=== PATIENT | female | born 1985 | race Caucasian/White ===

== ENCOUNTER → 2022-06-01 | Outpatient (CLI) | payer OTHER, SELFPAY ==
--- NOTE | 2022-06-01 09:33 | EKG12_ITS ---
Test Reason : ROUTINE Blood Pressure : / mmHG Vent. Rate : 073 BPM Atrial Rate : 073 BPM P-R Int : 152 ms QRS Dur : 082 ms QT Int : 380 ms P-R-T Axes : 044 039 011 degrees QTc Int : 418 ms Sinus rhythm with marked sinus arrhythmia Low voltage QRS Borderline ECG Confirmed by BABITA LARSON, RADHA ([id number]), rewrite editor GABO SALINAS ([id number]) on 06/02/2022 2:07:15 PM Referred By: Rhiannon Moore Confirmed By:WILFRIDO JC MD
== END | disposition home or self-care (01) ==
LOC: PSN 09:32
PROVIDERS: PCP Internal Medicine; Referring Provider Internal Medicine; Visit Provider Internal Medicine
DX: R00.2 Palpitations (principal)
CPT/HCPCS: 93005; 93225; 93226

== ENCOUNTER → 2022-07-06 | Outpatient (CLI) | payer OTHER, SELFPAY ==
--- NOTE | 2022-07-06 12:20 | ECHOD_ITS ---
Reason For Study: Arrhythmia Procedure This was a 2D Doppler, Color Flow transthoracic echocardiogram. The exam was of adequate technical quality. Exam performed in department. Left Ventricle Normal LV size. Left ventricular systolic function is normal. The estimated ejection fraction is 65 %. No evidence for diastolic dysfunction. No regional wall motion abnormalities noted. Right Ventricle Normal RV size. Normal systolic function. Atria Normal left atrium. Normal right atrium. No doppler evidence for ASD. Mitral Valve There is no mitral annular calcification. Normal mitral valve. Trivial mitral valve insufficiency. Tricuspid Valve Normal tricuspid valve. Trivial tricuspid valve insufficiency. Unable to estimate RV systolic pressure due to insufficient tricuspid regurgitant envelope. Aortic Valve Trisinus/trileaflet aortic valve. Normal aortic valve. Pulmonic Valve The pulmonic valve is not well visualized. Trivial pulmonic valve insufficiency. Great Vessels Normal sized aortic root. Pericardium/Pleural No pericardial effusion. MMode/2D Measurements & Calculations LVIDd: 4.6 cm IVSd: 0.93 cm Ao root diam: 3.1 cm LVIDs: 2.9 cm LVPWd: 1.0 cm LA dimension: 3.5 cm FS: 36.2 % LAV(MOD-bp): 28.6 ml LA A4 area: 13.8 cm2 RA A4 area: 13.3 cm2 LAV(MOD-bp) Indexed: 14.4 ml/m2 LAV(MOD-sp2): 22.6 ml LAV(MOD-sp4): 27.9 ml Time Measurements MV dec time: 0.19 sec Doppler Measurements & Calculations MV E max elio: 99.6 cm/sec Lat Peak E' Elio: 16.2 cm/sec Med Peak E' Elio: 14.9 cm/sec MV A max elio: 56.1 cm/sec E/E' lat: 6.2 E/E' med: 6.7 MV E/A: 1.8 MV V2 max: 101.8 cm/sec MV P1/2t max elio: 101.8 cm/sec Ao V2 max: 131.9 cm/sec MV max P.1 mmHg MV P1/2t: 51.2 msec Ao max P.0 mmHg MV V2 mean: 53.5 cm/sec MV dec slope: 582.6 cm/sec2 MV mean P.4 mmHg MVA(P1/2t): 4.3 cm2 MV V2 VTI: 19.3 cm LV V1 max: 78.6 cm/sec PA V2 max: 97.4 cm/sec LV V1 max P.5 mmHg ECHO/Echo Complete Interpretation Summary Left ventricular systolic function is normal. The estimated ejection fraction is 65 %. Trivial mitral valve insufficiency. Trivial tricuspid valve insufficiency. Trivial pulmonic valve insufficiency. Unable to estimate RV systolic pressure due to insufficient tricuspid regurgita nt envelope. No evidence for diastolic dysfunction. Ordering Physician: Geoff Akbar Referring Physician: Elke Moore Performed By: Gato Mason RCS
--- NOTE | 2022-07-06 14:58 | STRESSREP ---
Stress Test Report Date: 07-06-2022 Procedure: Exercise tolerance test Indications: Shortness of breath/dyspnea; conduction system abnormality Consent: Per the patient Procedure: The patient exercised on a Tom protocol for 6 minutes completing stage II achieving a peak heart rate of 190 bpm (104% predicted maximal heart rate) with a resting blood pressure of 122/82 mmHg and a peak blood pressure 140/88 mmHg and a peak MET capacity of approximately 7 MET's. The baseline ECG demonstrated normal sinus rhythm. The peak exercise ECG demonstrated somatic/motion artifact with no obvious ECG changes. There were no cardiac dysrhythmias pretest, during exercise, or recovery. The functional capacity was considered average. The patient had no complaint of chest discomfort during exercise or recovery. The examination was discontinued secondary to dyspnea. Impression: 1. Technically adequate (percent predicted maximal heart rate greater than 85%) exercise tolerance test 2. Peak exercise ECG with somatic/motion artifact with no obvious ECG changes 3. There were no cardiac dysrhythmias during exercise or recovery This note was generated with [employer] software. It may contain incorrect words, spelling, and punctuation that were not noted in checking the note before signing.
== END | disposition home or self-care (01) ==
LOC: CVS 12:19
PROVIDERS: PCP Internal Medicine; Referring Provider Internal Medicine Cardiovascular Disease; Visit Provider Internal Medicine Cardiovascular Disease
DX: R06.02 Shortness of breath (principal); I44.1 Atrioventricular block, second degree; R00.2 Palpitations
CPT/HCPCS: 93017; 93306

== ENCOUNTER → 2023-08-22 | Outpatient (CLI) | payer OTHER, SELFPAY ==
--- NOTE | 2023-08-22 13:45 | BI_ITS ---
MAMMOGRAPHY - BILATERAL SCREENING REASON FOR EXAM: Female, 38 years old. Routine annual screening examination. PERTINENT HISTORY: Non-contributory. TECHNIQUE: Digital bilateral breast misael (3D mammographic acquisition) in the CC and MLO projections. 2-D mediolateral oblique (MLO) and craniocaudad (CC) views of both breasts were obtained. CAD: Full Field Digital Mammography with Computer Added Detection was performed. COMPARISON: None. Baseline examination. FINDINGS: Breast Composition: There are scattered areas of fibroglandular density. There are no dominant masses or suspicious calcifications. No other significant abnormalities are identified. BI/SCRN MAMM (CAD)W/MISAEL BILAT IMPRESSION: Negative screening mammogram. Yearly followup mammogram recommended. (A) ASSESSMENT CATEGORY: BIRADS Category 1: Negative. A letter regarding these results will be sent to the patient by the facility within 30 days. Approximately 10% of breast cancers are not detected by mammography. A normal mammogram should not delay biopsy of a clinically suspicious abnormality. [id number] Electronically Signed: Chato Winston MD at 15:35 EST ,
== END | disposition home or self-care (01) ==
LOC: OPBI 13:43
PROVIDERS: PCP Internal Medicine; Referring Provider Internal Medicine; Visit Provider Internal Medicine
DX: Z12.31 Encounter for screening mammogram for malignant neoplasm of breast (principal)
CPT/HCPCS: 77063; 77067

== ENCOUNTER → 2023-10-23 | Outpatient (CLI) | payer OTHER, SELFPAY ==
--- NOTE | 2023-10-23 14:15 | RAD_ITS ---
STUDY: X-RAY - LUMBAR SPINE REASON FOR EXAM: Female, 38 years old. Back pain TECHNIQUE: 5 view(s) of the lumbar spine were obtained. COMPARISON: None FINDINGS: Normal lumbar lordosis. There is mild dextroscoliosis or splinting secondary to muscle spasm. There is a normal alignment of the vertebrae. No evidence for acute fracture or subluxation. No lytic or sclerotic bony lesions. There is narrowing of L4-5 disc space and multilevel endplate spurring. The soft tissue structures are unremarkable. RAD/L/S Spine Min 4 Views IMPRESSION: Mild scoliosis and degenerative change. No acute fracture or other significant bony pathology. Electronically Signed: Milo Marin MD at 17:02 EST ,
--- OUTSIDE RECORDS SUMMARY | 2023-10-23 14:31 | XMS RPT_ITS | CCD ---
Author Name Unknown Address [address] [place] [address] Organization [facility] Results Test Name Value Interpretation Reference Range Facil ity Summary Purpose Family History No Family History Records Found Advance Directives No Advanced Directives Records Found Additional Source Comments INFORMATION SOURCE (unrecogn ized section and content) FOR RECORDS PERTAINING TO PATIENTS WHO ARE OR HAVE BEEN ENROLLED IN A CHEMICAL DEPENDENCY/SUBSTANCEABUSE PROGRAM, SOME INFORMATION MAY BE OMITTED. This clinical summary was aggregated from multiple sources. Caution should be exercised in using it in the provision of clinical care. This summary normalizes information from multiple sources, and as a consequence, information in this document may materially change the coding, format and clinical context of patient data. In addition, data may be omitted in some cases. CLINICAL DECISIONS SHOULD BE BASED ON THE PRIMARY CLINICAL RECORDS. [employer] provides no warranty or guarantee of the accuracy or completeness of information in this document.
== END | disposition home or self-care (01) ==
LOC: RAD 14:06
PROVIDERS: PCP Internal Medicine; Referring Provider Chiropractor; Visit Provider Chiropractor
DX: M99.01 Segmental and somatic dysfunction of cervical region (principal); M99.02 Segmental and somatic dysfunction of thoracic region; M99.03 Segmental and somatic dysfunction of lumbar region; M99.05 Segmental and somatic dysfunction of pelvic region; M54.9 Dorsalgia, unspecified
CPT/HCPCS: 72110

== ENCOUNTER → 2025-08-26 | Outpatient (CLI) | payer OTHER, SELFPAY ==
--- OUTSIDE RECORDS SUMMARY | 2025-08-26 08:28 | XMS RPT_ITS | CCD ---
Author Organization [facility] Care Team Providers Care Sports Medicine Specialist Name Role Phone Dr. Rhiannon Moore Attending Provider [phone] Dr. Rhiannon Moore Primary Care Provider Dr. Rhiannon Moore Referring Provider [phone] Dr. Olivier Cho Attending Provider [phone] Dr. Geoff Akbar Attending Provider [phone] Dr. Rhiannon Moore Primary Care Provider Dr. Rhiannon Moore Attending Provider [phone] Dr. Rhiannon Moore Referring Provider [phone] Dr. Camila Gutierrez Attending Provider 1330- Assessment, Health Risk Referring Unavaila ble Assessment, Health Risk Attending Unavaila ble Rhiannon Moore Primary Care Unavailable Rhiannon Moore Primary Care Unavailable Rhiannon Moore Referring Unavailable Rhiannon Moore Attending Unavailable Allergies Allergy Classification Reported Allergen(s) Allergy Type Date of Onset Reaction(s) Facility (3 sources) Adhesive agent; Translations: [adhesive] Allergy to substance 06-15-2022 [facility] Medications Current Medications Medication Drug Class(es) Dates Sig (Normalized) Sig (Original) [place] (Nk) (2 sources) Start: 06-15-2022 [place] (Nk) A ctive June 14, 2022 11:00pm Start: 06-15-2022 [place] (Nk) A ctive June 15, 2022 12:00am Completed/Discontinued Medications Medication Drug Class(es) Dates Sig (Normalized) Sig (Original) azithromycin 250 mg oral tablet (2 sources) Macrolide Antimicrobial Start: 10-19-2021 End: 05-22-2022 Azithromycin Discontinued 250 MG PO daily October 19, 2021 12:00am May 22, 2022 9:00am 2 tablets today, then 1 tablet daily on days 2 through 5 Multivitamin preparation (2 sources) Start: 09-11-2021 End: 05-22-2022 take 1 tablet by mouth once daily Multivitamin Discontinued 1 TABLET PO DAILY September 11, 2021 12:00am May 22, 2022 8:59am Start: 09-11-2021 End: 05-22-2022 take 1 tablet by mouth once daily Multivitamin Discontinued 1 TABLET PO DAILY September 11, 2021 1:00am May 22, 2022 9:59am Problems Problem Classification Problem Date Documented Date Episodic/Chronic Acute bronchitis (2 sources) Acute bronchitis; Translations: [Acute bronchitis, unspecified] 07-19-2023 Episodic Administrative/social admission (1 source) Persons encountering health services in other specified circumstances; Translations: [Other reasons for seeking consultation] Episodic Cardiac dysrhythmias (5 sources) Palpitations; Translations: [Palpitations] Episodic Conduction disorders (3 sources) Mobitz type I incomplete atrioventricular block; Translations: [Atrioventricular block, second degree] Chronic Immunizations and screening for infectious disease (2 sources) Patient encounter status; Translations: [Encounter for screening for COVID-19] 07-19-2023 Episodic Malaise and fatigue (1 source) Other fatigue; Translations: [Other fatigue] Onset: 07-28-2025 Episodic Other bone disease and musculoskeletal deformities (4 sources) Segmental and somatic dysfunction; Translations: [Segmental and somatic dysfunction of cervical region] 10-11-2023 Episodic Other bone disease and musculoskeletal deformities (1 source) Segmental and somatic dysfunction of cervical region; Translations: [Nonallopathic lesions, cervical region] 10-11-2023 Episodic Other bone disease and musculoskeletal deformities (1 source) Segmental and somatic dysfunction of lumbar region; Translations: [Nonallopathic lesions, lumbar region] 10-11-2023 Episodic Other bone disease and musculoskeletal deformities (1 source) Segmental and somatic dysfunction of pelvic region; Translations: [Nonallopathic lesions, pelvic region] 10-11-2023 Episodic Other bone disease and musculoskeletal deformities (1 source) Segmental and somatic dysfunction of thoracic region; Translations: [Nonallopathic lesions, thoracic region] 10-11-2023 Episodic Other ear and sense organ disorders (1 source) Impacted cerumen, bilateral; Translations: [Impacted cerumen] 07-19-2023 Episodic Other lower respiratory disease (2 sources) Cough; Translations: [Cough] 05-18-2022 Episodic Other lower respiratory disease (2 sources) Dyspnea; Translations: [Dyspnea, unspecified] 06-15-2022 Episodic Other lower respiratory disease (1 source) Dyspnea, unspecified; Translations: [Other respiratory abnormalities] Episodic Other screening for suspected conditions (not mental disorders or infectious disease) (5 sources) Encounter for screening for cardiovascular disorders; Translations: [Screening for other and unspecified cardiovascular conditions] Episodic Other upper respiratory infections (4 sources) Acute pharyngitis; Translations: [Acute pharyngitis, unspecified] 07-19-2023 Episodic Spondylosis; intervertebral disc disorders; other back problems (6 sources) Low back pain; Translations: [Intermittent low back pain] Episodic Results Test Name Value Interpretation Reference Range Facility Internal Medicine Office Vis ito 07-27-2025 Internal Medicine Office Visit [facility] Internal Medicine [facility] [place] [address] OFFICE VISIT Date of Service: 07/28/25 MR#: [id number] Acct: [id number] Name: CHRISTINA SÁNCHEZ Rep #: [id number] : 1985 Provider: Dr. Rhiannon lundberg MD Age/Sex: 40/F [place] [facility] [place] [facility] [place]: Signed Intake Vital Signs 07/28/24 12:51 07/28/25 10:51 Height 5 ft 3 in 5 ft 3 in Weight: 235 lb BMI 41.6 BP 122/78 H Blood Pressure Location Rt brachial Position Sitting Respiration 16 Pulse 89 Pulse Source Monitor Temp 96.1 F L Temp Source Temporal Pulse Oximetry (%) 99 Oxygen Delivery Method room air Intake Visit Reasons: YEARLY Chief Complaint: Yearly Global Implementation Manager Required: No Accompanied by: Self Is patient in pain?: No Allergies adhesive Allergy (Intermediate, Verified 07/28/25 10:45) Rash Medications ???Medication ???Instructions ???Recorded ???Confirmed ???Type pediatric multivitamin no.209 tab PO 07/28/24 07/28/25 History (Children's Multivitamin Gummy chewable tablet) Nurse's Note: check vitamin d level? right foot heel pain PFSH Medical History Migraines History of cardiac murmur Surgical History History of wisdom tooth extraction Family History Grandmother Anxiety Depression Alzheimer disease CHF (congestive heart failure) Mitral valve prolapse Father Diabetes Heart disease High cholesterol Aunt Diabetes Mitral valve prolapse Sister Diabetes Mother Heart disease High cholesterol Mitral valve prolapse Gaines esophagus Grandfather CVA (cerebral vascular accident) Kidney disease Myocardial infarction Other Hypertension Social History (Updated 07/28/25 @ 11:[address] Rhiannon Moore MD) household members: family current occupational status: employed current occupation: [employer] in [employer] Smoking Status: Never smoker Electronic Cigarette Use: not used alcohol intake: current alcohol intake frequency: holidays/special occasions only substance use type: does not use caffeine: Yes Type: carbonated beverages Number of servings: 3 and tea Number of servings: 1 what type of physical activity do you participate in: none do you feel safe at home: Yes Questionnaire PQH-9 BMS Over the last 2 weeks, how often have you been bothered by any of the following problems? 1. Little interest or pleasure in doing things: not at all 2. Feeling down, depressed, or hopeless: not at all 3. Trouble falling or staying asleep, or sleeping too much: not at all 4. Feeling tired or having little energy: several days 5. Poor appetite or overeating: not at all 6. Feeling bad about yourself - or that you are a failure or have let yourself and your family down: not at all 7. Trouble concentrating on things, such as reading the newspaper or watching television: not at all 8. Moving or speaking so slowly that other people could have noticed? - Or the opposite - being so fidgety or restless that you have been moving around a lot more than usual: not at all 9. Thoughts that you would be better off or of hurting yourself in some way: not at all Total score: 1 If you checked off any problems, how difficult have these problems made it for you to do your work, take care of things at home, or get along with other people?: not difficult at all Source: Developed by Drs. Jaziel Wren, Reji Reynolds and colleagues, with an educational cher from [employer]. ADRIANE-7 BMS ADRIANE-7 Feeling nervous, anxious, or on edge: 0 = Not at all Not being able to stop or control worryin = Not at all Worrying too much about different things: 0 = Not at all Trouble relaxin = Not at all Being so restless that it is hard to sit still: 0 = Not at all Becoming easily annoyed or irritable: 1 = Several days Feeling afraid as if something awful might happen: 0 = Not at all Total ADRIANE-7 score (0-4 normal; 5-9 mild; 10-14 moderate; 15-21 severe): 1 Source: Developed by Drs. Jaziel Wren, Jannet Mendoza, Reji Krishnan and colleagues, with an educational cher from [employer]. HPI HPI Chief Complaint: Yearly Details: CHRISTINA SÁNCHEZ, is a 40 F who presents to the office today for an annual visit. She isn't due for any routine blood work. She would prefer to do mammograms every other year and will be due in August. She isn't due for any immunizations. She doesn't smoke and doesn't take any medications. She denies any problems with palpitations recently. She reports her back continues to bother her intermittently. She hasn't seen the chiropractor recently and is thinking about going back (more content not included)... Normal [facility] CBC, Employeeon 06-16-2025 Absolute Lymph 2.84 X10 3/uL Normal 0.83-4.51 [facility] Comment on above: Performed By: #### L 500.2900, L100.0200, L400.0100 #### [facility] [address] [place], [address] Absolute Neut 7.4 X10 3/uL Normal 2.0-7.7 [facility] Comment on above: Performed By: #### L 500.2900, L100.0200, L400.0100 #### [facility] [address] [place], [address] Basophils/100 WBC (Bld) 0.4 % Normal 0-[address] [facility] Comment on above: Performed By: #### L 500.2900, L100.0200, L400.0100 #### [facility] [address] [place], [address] Eosinophils/100 WBC (Bld) 0.6 % Normal 0-5 [facility] Comment on above: Performed By: #### L 500.2900, L100.0200, L400.0100 #### [facility] [address] [place], [address] Erythrocyte distribution width (RBC) [Ratio] 12.3 % Normal 11.6-14.6 [facility] Comment on above: Performed By: #### L 500.2900, L100.0200, L400.0100 #### [facility] [address] [place], [address] Hematocrit (Bld) [Volume fraction] 39.2 % Normal 37-47 [facility] Comment on above: Performed By: #### L 500.2900, L100.0200, L400.0100 #### [facility] [address] [place], [address] Hemoglobin (Bld) [Mass/Vol] 13.4 g/dL Normal 12.0-15.0 [facility] Comment on above: Performed By: #### L 500.2900, L100.0200, L400.0100 #### [facility] [address] [place], [address] Lymphocytes/100 WBC (Bld) 25.2 % Normal 19-41 [facility] Comment on above: Performed By: #### L 500.2900, L100.0200, L400.0100 #### [facility] [address] [place], [address] MCH (RBC) [Entitic mass] 30.4 pg Normal 27.0-32.0 [facility] Comment on above: Performed By: #### L 500.2900, L100.0200, L400.0100 #### [facility] [address] [place], [address] MCHC (RBC) [Mass/Vol] 34.2 g/dL Normal 32-36 [facility] Comment on above: Performed By: #### L 500.2900, L100.0200, L400.0100 #### [facility] [address] [place], [address] MCV (RBC) [Entitic vol] 88.9 fL Normal 81-99 [facility] Comment on above: Performed By: #### L 500.2900, L100.0200, L400.0100 #### [facility] [address] [place], [address] Monocytes/100 WBC (Bld) 7.7 % Normal 0-10 [facility] Comment on above: Performed By: #### L 500.2900, L100.0200, L400.0100 #### [facility] [address] [place], [address] Neutrophils/100 WBC (Bld) 65.6 % Normal 47-70 [facility] Comment on above: Performed By: #### L 500.2900, L100.0200, L400.0100 #### [facility] [address] [place], [address] NRBC # 0.00 10 3/uL Normal 0-5 [facility] Comment on above: Performed By: #### L 500.2900, L100.0200, L400.0100 #### [facility] [address] [place], [address] Nucleated RBC (Bld) [#/Vol] 0 10*3/uL Normal 0-5 [facility] Comment on above: Performed By: #### L 500.2900, L100.0200, L400.0100 #### [facility] [address] [place], [address] Platelet mean volume (Bld) [Entitic vol] 9.2 fL Normal 6.2-12.0 [facility] Comment on above: Performed By: #### L 500.2900, L100.0200, L400.0100 #### [facility] [address] [place], [address] Platelets (Bld) [#/Vol] 240 10*3/uL Normal 150-450 [facility] Comment on above: Performed By: #### L 500.2900, L100.0200, L400.0100 #### [facility] [address] [place], [address] RBC (Bld) [#/Vol] 4.41 10*6/uL Normal 4.2-5.4 [facility] Comment on above: Performed By: #### L 500.2900, L100.0200, L400.0100 #### [facility] [address] [place], [address] RDW SD 40.3 fl Normal 35.1-43.9 [facility] Comment on above: Performed By: #### L 500.2900, L100.0200, L400.0100 #### [facility] [address] [place], [address] WBC (Bld) [#/Vol] 11.3 10*3/uL High 4.4-11.0 [facility] Comment on above: Performed By: #### L 500.2900, L100.0200, L400.0100 #### [facility] [address] [place], [address] Employee Profileon LDH 208 U/L Normal 84-246 [facility] Comment on above: Performed By: #### L 500.2900, L100.0200, L400.0100 #### [facility] [address] [place], [address] Phosphate [Mass/Vol] 3.6 mg/dL Normal 2.7-4.5 [facility] Comment on above: Performed By: #### L 500.2900, L100.0200, L400.0100 #### [facility] [address] [place], [address] URIC 4.0 mg/dL Normal 2.6-6.0 [facility] Comment on above: Result Comment: The drugs N-Acetylcysteine and Metamizole may falsely depress this assay. Performed By: #### L 500.2900, L100.0200, L400.0100 #### [facility] [address] [place], [address] Urinalysis, Employeeon 06-16 BILIRUBIN URINE Normal Negative [facility] Comment on above: Order Comment: Urine , Random Result Comment: NOT WANTED Performed By: #### L 500.2900, L100.0200, L400.0100 #### [facility] [address] [place], [address] Clarity (U) Normal Clear [facility] Comment on above: Order Comment: Urine , Random Result Comment: NOT WANTED Performed By: #### L 500.2900, L100.0200, L400.0100 #### [facility] [address] [place], [address] Color (U) Normal Yellow [facility] Comment on above: Order Comment: Urine , Random Result Comment: NOT WANTED Performed By: #### L 500.2900, L100.0200, L400.0100 #### [facility] [address] [place], [address] GLUCOSE, UR Normal Normal [facility] Comment on above: Order Comment: Urine , Random Result Comment: NOT WANTED Performed By: #### L 500.2900, L100.0200, L400.0100 #### [facility] [address] [place], [address] KETONE UR Normal Negative [facility] Comment on above: Order Comment: Urine , Random Result Comment: NOT WANTED Performed By: #### L 500.2900, L100.0200, L400.0100 #### [facility] [address] [place], [address] LEUK ESTERASE Normal Negative [facility] Comment on above: Order Comment: Urine , Random Result Comment: NOT WANTED Performed By: #### L 500.2900, L100.0200, L400.0100 #### [facility] [address] [place], [address] Nitrite Ql (U) Normal Negative [facility] Comment on above: Order Comment: Urine , Random Result Comment: NOT WANTED Performed By: #### L 500.2900, L100.0200, L400.0100 #### [facility] [address] [place], [address] OCCULT BLOOD-UR Normal Negative [facility] Comment on above: Order Comment: Urine , Random Result Comment: NOT WANTED Performed By: #### L 500.2900, L100.0200, L400.0100 #### [facility] [address] [place], [address] pH UR Normal 5.0 - 8.0 [facility] Comment on above: Order Comment: Urine , Random Result Comment: NOT WANTED Performed By: #### L 500.2900, L100.0200, L400.0100 #### [facility] [address] [place], [address] PROT DIPSTX Normal Negative [facility] Comment on above: Order Comment: Urine , Random Result Comment: NOT WANTED Performed By: #### L 500.2900, L100.0200, L400.0100 #### [facility] [address] [place], [address] SP.GR. DIPSTX Normal 1.002-1.030 [facility] Comment on above: Order Comment: Urine , Random Result Comment: NOT WANTED Performed By: #### L 500.2900, L100.0200, L400.0100 #### [facility] [address] [place], [address] UR Preservative Normal [facility] Comment on above: Order Comment: Urine , Random Result Comment: NOT WANTED Performed By: #### L 500.2900, L100.0200, L400.0100 #### [facility] [address] [place], [address] UROBILI Normal Normal [facility] Comment on above: Order Comment: Urine , Random Result Comment: NOT WANTED Performed By: #### L 500.2900, L100.0200, L400.0100 #### [facility] [address] [place], [address] Absolute lymphocyte countOrd ered By: HEALTH ASSESSMENT on 07-19-2023 Lymphocytes Auto (Unsp spec) [#/Vol] 1.23 10*3/uL 0.83-4.51 [facility] Absolute reticulocyte countO rdered By: HEALTH ASSESSMENT on 07-19-2023 Reticulocytes (Bld) [#/Vol] 0.00 10*3/uL 0-5 [facility] [facility] Basophil percentageOrdered B y: HEALTH ASSESSMENT on 07-19-2023 Basophil percentage 2.4 mg/dL 2.5-4.9 [facility] Bilirubin [Mass/Vol] 0.40 mg/dL 0.20-1.00 [facility] Comment on above: For patients on eltr ombopag therapy, use of Dimension Emma TBIL is not recommended. Chloride [Moles/Vol] 107 mmol/L 98-107 [facility] Cholesterol [Mass/Vol] 159 mg/dL <200 [facility] Comment on above: <200 mg/dL Desirable 200-240 mg/dL Borderline >240 mg/dL High Risk Glucose [Mass/Vol] 100 mg/dL 74-106 [facility] Comment on above: Fasting Glucose resu lt from 100 to 125 mg/dL suggests IMPAIRED HOMEOSTASIS per A.D.A. criteria. LDH [Catalytic activity/Vol] 138 U/L 84-246 [facility] Neutrophils (Bld) [#/Vol] 4.4 10*3/uL 2.0-7.7 [facility] Potassium [Moles/Vol] 3.8 mmol/L 3.5-5.1 [facility] Protein [Mass/Vol] 7.5 g/dL 6.4-8.2 [facility] Sodium [Moles/Vol] 140 mmol/L 136-145 [facility] Triglyceride [Mass/Vol] 145 mg/dL <[address] [facility] Comment on above: The drugs N-Acetylcy steine and Metamizole may falsely depress this assay.Serum Triglycerides Reference Interval Normal <150 mg/dL Borderline high 150 - 199 mg/dL High 200 - 499 mg/dL Very High > or = 500 mg/dL WBC (Bld) [#/Vol] 6.2 10*3/uL 4.4-11.0 [facility] Bilirubin Test strip Ql (U)O rdered By: HEALTH ASSESSMENT on 07-19-2023 Bilirubin Ql (U) Negative Negative [facility] Blood erythrocytes count (nu mber/volume)Ordered By: HEALTH ASSESSMENT on 07-19-2023 RBC (Bld) [#/Vol] 4.31 10*6/uL 4.2-5.4 [facility] Blood hemoglobin measurement (mass/volume)Ordered By: HEALTH ASSESSMENT on 07-19-2023 Hemoglobin (Bld) [Mass/Vol] 13.3 g/dL 12.0-15.0 [facility] Blood platelet mean volumeOr dered By: HEALTH ASSESSMENT on 07-19-2023 Platelet mean volume (Bld) [Entitic vol] 9.8 fL 6.2-12.0 [facility] Determination of erythrocyte mean corpuscular volume (MCV)Ordered By: HEALTH ASSESSMENT on 07-19-2023 MCV (RBC) [Entitic vol] 94.4 fL 81-[address] [facility] Direct bilirubinOrdered By: HEALTH ASSESSMENT on 07-19-2023 Bilirubin.direct [Mass/Vol] 0.11 mg/dL 0.00-0.30 [facility] Hematocrit Auto (Bld) [Volum e fraction]Ordered By: HEALTH ASSESSMENT on 07-19-2023 Hematocrit (Bld) [Volume fraction] 40.7 % 37-47 [facility] Ketones Test strip Ql (U)Ord ered By: HEALTH ASSESSMENT on 07-19-2023 Ketones Ql (U) 5 mg/dl Negative [facility] - Chemistry and C hemistry - challengeOrdered By: HEALTH ASSESSMENT on 07-19-2023 ALP [Catalytic activity/Vol] 77 U/L 45-117 [facility] ALT [Catalytic activity/Vol] 18 U/L 13-56 [facility] Cholesterol.total/Cholest yazmin in HDL [Mass ratio] 3.20 {ratio} [facility] CO2 [Moles/Vol] 29.0 mmol/L 21.0-32.0 [facility] Globulin (S) [Mass/Vol] 3.8 g/dL 2.2-4.[address] [facility] Urea nitrogen/Creatinine [Mass ratio] 17.3 mg/mg 10-20 [facility] - Hematology and Cell countsOrdered By: HEALTH ASSESSMENT on 07-19-2023 Erythrocyte distribution width (RBC) [Entitic vol] 41.7 fL 35.1-43.9 [facility] Erythrocyte distribution width (RBC) [Ratio] 12.0 % 11.6-14.6 [facility] MCH (RBC) [Entitic mass] 30.9 pg 27.0-32.0 [facility] Nucleated RBC/100 WBC (Bld) [Ratio] 0 % 0-5 [facility] MCHC Auto (RBC) [Mass/Vol]Or dered By: HEALTH ASSESSMENT on 07-19-2023 MCHC (RBC) [Mass/Vol] 32.7 g/dL 32-36 [facility] Nitrite Test strip Ql (U)Ord ered By: HEALTH ASSESSMENT on 07-19-2023 Nitrite Ql (U) Negative Negative [facility] No Panel InformationOrdered By: HEALTH ASSESSMENT on 07-19-2023 Estimated GFR (MDRD) Amer 133 mL/min >60 [facility] Comment on above: GFR Calc Estimated GFR (MDRD) Non-Af Amer 110 mL/min >60 [facility] Comment on above: Non- GFR Calc Platelets bldOrdered By: NAIN LT ASSESSMENT on 07-19-2023 Platelets (Bld) [#/Vol] 214 10*3/uL 150-450 [facility] Protein Test strip Ql (U)Ord ered By: HEALTH ASSESSMENT on 07-19-2023 Protein Ql (U) 15 mg/dl Negative [facility] Segmented neutrophils/100 WB C Auto (Bld)Ordered By: HEALTH ASSESSMENT on 07-19-2023 Segmented neutrophils/100 WBC (Bld) 70.6 % 47-70 [facility] Serum or plasma albumin eliza urement (mass/volume)Ordered By: HEALTH ASSESSMENT on 07-19-2023 Albumin [Mass/Vol] 3.7 g/dL 3.2-5.0 [facility] Serum or plasma albumin/glob ulin mass ratioOrdered By: HEALTH ASSESSMENT on 07-19-2023 Albumin/Globulin [Mass ratio] 1.0 {ratio} 0.9-2.4 [facility] Serum or plasma calcium eliza urement (mass/volume)Ordered By: HEALTH ASSESSMENT on 07-19-2023 Calcium [Mass/Vol] 9.1 mg/dL 8.5-10.1 [facility] Serum or plasma cholesterol in HDL measurement (mass/volume)Ordered By: HEALTH ASSESSMENT on 07-19-2023 Cholesterol in HDL [Mass/Vol] 50 mg/dL >40 [facility] Comment on above: The drugs N-Acetylcy steine and Metamizole may falsely depress this assay. Reference Range HDL <40 mg/dL Low HDL Cholesterol HDL >or= 60 mg/dL High HDL Cholesterol Serum or plasma cholesterol in VLDL measurement (mass/volume)Ordered By: HEALTH ASSESSMENT on 07-19-2023 Cholesterol in VLDL [Mass/Vol] 29 mg/dL 5-40 [facility] Serum or plasma creatinine m easurement (mass/volume)Ordered By: HEALTH ASSESSMENT on 07-19-2023 Creatinine [Mass/Vol] 0.64 mg/dL 0.55-1.02 [facility] Comment on above: The validity of the calculated GFR & GFRAA in patients over 70 years has not been determined. Clinical correlation is essential. Serum or plasma low density lipoprotein (LDL) cholesterol measurement (mass/volume)Ordered By: HEALTH ASSESSMENT on 07-19-2023 Cholesterol in LDL [Mass/Vol] 80 mg/dL 0-130 [facility] Serum or plasma urea nitroge n measurement (mass/volume)Ordered By: HEALTH ASSESSMENT on 07-19-2023 Urea nitrogen [Mass/Vol] 11 mg/dL 7-18 [facility] Serum or plasma uric acid me asurement (mass/volume)Ordered By: HEALTH ASSESSMENT on 07-19-2023 Urate [Mass/Vol] 3.1 mg/dL 2.6-6.0 [facility] Comment on above: The drugs N-Acetylcy steine and Metamizole may falsely depress this assay. Thin prep Papanicolaou smear with manual screeningOrdered By: HEALTH ASSESSMENT on 07-19-2023 Thin prep Papanicolaou smear with manual screening 10 U/L 15-37 [facility] Thin prep Papanicolaou smear with manual screening 4 5-15 [facility] Urine blood detectionOrdered By: HEALTH ASSESSMENT on 07-19-2023 RBC Ql (U) 25 /ul Negative [facility] Urine clarityOrdered By: HEA LT ASSESSMENT on 07-19-2023 Clarity (U) Sl. Cloudy Clear [facility] Urine color determinationOrd ered By: HEALTH ASSESSMENT on 07-19-2023 Color (U) Yellow Yellow [facility] Urine glucose detectionOrder ed By: HEALTH ASSESSMENT on 07-19-2023 Glucose Ql (U) Normal mg/dl Normal [facility] Urine leukocyte esterase det ection by dipstickOrdered By: HEALTH ASSESSMENT on 07-19-2023 Leukocyte esterase Test strip Ql (U) 25 /ul Negative [facility] Urine pHOrdered By: HEALTH A SSESSMENT on 07-19-2023 pH (U) 5.0 [pH] 5.0 - 8.0 [facility] Urine specific gravity measu rementOrdered By: HEALTH ASSESSMENT on 07-19-2023 Specific gravity (U) [Rel density] 1.025 1.002-1.030 [facility] Urobilinogen Auto test strip Ql (U)Ordered By: HEALTH ASSESSMENT on 07-19-2023 Urobilinogen Ql (U) 1 mg/dl Normal [facility] Absolute lymphocyte counton 05-22-2022 Lymphocytes Auto (Unsp spec) [#/Vol] 1.74 10*3/uL 0.83-4.51 [facility] Work Phone: Absolute reticulocyte counto n 05-22-2022 Reticulocytes (Bld) [#/Vol] 0.00 10*3/uL 0-5 [facility] Work Phone: Basophil percentageon 2021 Basophil percentage 2.6 mg/dL 2.5-4.9 [facility] Work Phone: Bilirubin [Mass/Vol] 0.40 mg/dL 0.20-1.00 [facility] Work Phone: Comment on above: For patients on eltr ombopag therapy, use of Dimension Emma TBIL is not recommended. Chloride [Moles/Vol] 105 mmol/L 98-107 [facility] Work Phone: Cholesterol [Mass/Vol] 192 mg/dL <200 [facility] Work Phone: Comment on above: <200 mg/dL Desirable 200-240 mg/dL Borderline >240 mg/dL High Risk Glucose [Mass/Vol] 93 mg/dL 74-106 [facility] Work Phone: Neutrophils (Bld) [#/Vol] 3.6 10*3/uL 2.0-7.7 [facility] Work Phone: Potassium [Moles/Vol] 4.2 mmol/L 3.5-5.1 [facility] Work Phone: Protein [Mass/Vol] 7.9 g/dL 6.4-8.2 [facility] Work Phone: Sodium [Moles/Vol] 137 mmol/L 136-145 [facility] Work Phone: Triglyceride [Mass/Vol] 111 mg/dL <[address] [facility] Work Phone: Comment on above: The drugs N-Acetylcy steine and Metamizole may falsely depress this assay.Serum Triglycerides Reference Interval Normal <150 mg/dL Borderline high 150 - 199 mg/dL High 200 - 499 mg/dL Very High > or = 500 mg/dL WBC (Bld) [#/Vol] 6.0 10*3/uL 4.4-11.0 [facility] Work Phone: Bilirubin Test strip Ql (U)o n 05-22-2022 Bilirubin Ql (U) Negative Negative [facility] Work Phone: Blood erythrocytes count (nu mber/volume)on 05-22-2022 RBC (Bld) [#/Vol] 4.49 10*6/uL 4.2-5.4 [facility] Work Phone: Blood hemoglobin measurement (mass/volume)on 05-22-2022 Hemoglobin (Bld) [Mass/Vol] 13.8 g/dL 12.0-15.0 [facility] Work Phone: Blood platelet mean volumeon 05-22-2022 Platelet mean volume (Bld) [Entitic vol] 9.9 fL 6.2-12.0 [facility] Work Phone: Determination of erythrocyte mean corpuscular volume (MCV)on 05-22-2022 MCV (RBC) [Entitic vol] 91.8 fL 81-[address] [facility] Work Phone: Direct bilirubinon 2 Bilirubin.direct [Mass/Vol] 0.11 mg/dL 0.00-0.30 [facility] Work Phone: Hematocrit Auto (Bld) [Volum e fraction]on 05-22-2022 Hematocrit (Bld) [Volume fraction] 41.2 % 37-47 [facility] Work Phone: Ketones Test strip Ql (U)on 05-22-2022 Ketones Ql (U) Negative Negative [facility] Work Phone: Laboratory - Chemistry and C hemistry - challengeon 05-22-2022 ALP [Catalytic activity/Vol] 80 U/L 45-117 [facility] Work Phone: ALT [Catalytic activity/Vol] 17 U/L 13-56 [facility] Work Phone: Cholesterol.total/Cholest yazmin in HDL [Mass ratio] 4.00 {ratio} [facility] Work Phone: CO2 [Moles/Vol] 24.0 mmol/L 21.0-32.0 [facility] Work Phone: Globulin (S) [Mass/Vol] 4.0 g/dL 2.2-4.[address] [facility] Work Phone: Urea nitrogen/Creatinine [Mass ratio] 18.3 mg/mg 10-20 [facility] Work Phone: Laboratory - Hematology and Cell countson 05-22-2022 Erythrocyte distribution width (RBC) [Entitic vol] 41.0 fL 35.1-43.9 [facility] Work Phone: Erythrocyte distribution width (RBC) [Ratio] 12.2 % 11.6-14.6 [facility] Work Phone: MCH (RBC) [Entitic mass] 30.7 pg 27.0-32.0 [facility] Work Phone: Nucleated RBC/100 WBC (Bld) [Ratio] 0 % 0-5 [facility] Work Phone: MCHC Auto (RBC) [Mass/Vol]on 05-22-2022 MCHC (RBC) [Mass/Vol] 33.5 g/dL 32-36 [facility] Work Phone: Nitrite Test strip Ql (U)on 05-22-2022 Nitrite Ql (U) Negative Negative [facility] Work Phone: No Panel Informationon 05-22 Estimated GFR (MDRD) Amer 129 mL/min >60 [facility] Work Phone: Comment on above: GFR Calc Estimated GFR (MDRD) Non-Af Amer 107 mL/min >60 [facility] Work Phone: Comment on above: Non- GFR Calc Platelets bldon 05-22-2022 Platelets (Bld) [#/Vol] 204 10*3/uL 150-450 [facility] Work Phone: Protein Test strip Ql (U)on 05-22-2022 Protein Ql (U) Negative Negative [facility] Work Phone: Segmented neutrophils/100 WB C Auto (Bld)on 05-22-2022 Segmented neutrophils/100 WBC (Bld) 59.9 % 47-70 [facility] Work Phone: Serum or plasma albumin eliza urement (mass/volume)on 05-22-2022 Albumin [Mass/Vol] 3.9 g/dL 3.2-5.0 [facility] Work Phone: Serum or plasma albumin/glob ulin mass ratioon 05-22-2022 Albumin/Globulin [Mass ratio] 1.0 {ratio} 0.9-2.4 [facility] Work Phone: Serum or plasma calcium eliza urement (mass/volume)on 05-22-2022 Calcium [Mass/Vol] 9.1 mg/dL 8.5-10.1 [facility] Work Phone: Serum or plasma cholesterol in HDL measurement (mass/volume)on 05-22-2022 Cholesterol in HDL [Mass/Vol] 48 mg/dL >40 [facility] Work Phone: Comment on above: The drugs N-Acetylcy steine and Metamizole may falsely depress this assay. Reference Range HDL <40 mg/dL Low HDL Cholesterol HDL >or= 60 mg/dL High HDL Cholesterol Serum or plasma cholesterol in VLDL measurement (mass/volume)on 05-22-2022 Cholesterol in VLDL [Mass/Vol] 22 mg/dL 5-40 [facility] Work Phone: Serum or plasma creatinine m easurement (mass/volume)on 05-22-2022 Creatinine [Mass/Vol] 0.65 mg/dL 0.55-1.02 [facility] Work Phone: Comment on above: The validity of the calculated GFR & GFRAA in patients over 70 years has not been determined. Clinical correlation is essential. Serum or plasma low density lipoprotein (LDL) cholesterol measurement (mass/volume)on 05-22-2022 Cholesterol in LDL [Mass/Vol] 122 mg/dL 0-130 [facility] Work Phone: Serum or plasma urea nitroge n measurement (mass/volume)on 05-22-2022 Urea nitrogen [Mass/Vol] 12 mg/dL 7-18 [facility] Work Phone: Serum or plasma uric acid me asurement (mass/volume)on 05-22-2022 Urate [Mass/Vol] 3.4 mg/dL 2.6-6.0 [facility] Work Phone: Comment on above: The drugs N-Acetylcy steine and Metamizole may falsely depress this assay. Thin prep Papanicolaou smear with manual screeningon 05-22-2022 Thin prep Papanicolaou smear with manual screening 10 U/L 15-37 [facility] Work Phone: Thin prep Papanicolaou smear with manual screening 8 5-15 [facility] Work Phone: Thin prep Papanicolaou smear with manual screening 147 U/L 84-246 [facility] Work Phone: Urine blood detectionon 05-02 RBC Ql (U) 10 /ul Negative [facility] Work Phone: Urine clarityon 05-22-2022 Clarity (U) Sl. Cloudy Clear [facility] Work Phone: Urine color determinationon 05-22-2022 Color (U) Yellow Yellow [facility] Work Phone: Urine glucose detectionon Glucose Ql (U) Normal mg/dl Normal [facility] Work Phone: Urine leukocyte esterase det ection by dipstickon 05-22-2022 Leukocyte esterase Test strip Ql (U) 500 /ul Negative [facility] Work Phone: Urine pHon 05-22-2022 pH (U) 6.0 [pH] 5.0 - 8.0 [facility] Work Phone: Urine specific gravity measu rementon 05-22-2022 Specific gravity (U) [Rel density] 1.015 1.002-1.030 [facility] Work Phone: Urobilinogen Auto test strip Ql (U)on 05-22-2022 Urobilinogen Ql (U) Normal mg/dl Normal [facility] Work Phone: PAP SMEARon 08-11-2021 Cytopathology procedure, preparation of smear, genital source Patient: CHRISTINA SÁNCHEZ Specimen: [id number] Spec Type: PAP SMEAR Ord. Dr.: Lavonne Dye CNP Status: SOUT Collect Date: 08/11/211529 Received Date: 08/12/21 1019 Source: CERVICAL/ENDOCERVIC AL() Procedure: CYTO PAP TLP MS Comments: Thinprep vial. PAP QUESTIONNAIRE Patient: CHRISTINA SÁNCHEZ ? - control? - Age/Sex: 36/F F ? - Hormones? - Col Date: 08/11/21 Menopausal? - Hyster? - LMP: 08/04/21 Pertinent Hx: Z12.4, Z00.00 CYTO LOGY REPORT -------- SPECIMEN ADEQUACY: Satisfactory, endocervical and/or metaplastic cells present. DESCRIPTIVE DIAGNOSIS: Negative for intraepithelial lesion or malignancy. Reactive/reparative changes. HPV TESTING: HPV Aptima: Negative This HPV test detects fourteen high-risk types (16,18,31,33,35,39, 45,51,52,56,58,59,6 6,68) Test performed at [address] [place] [address] Signed Verified/Reviewed by MORGAN SPIVEY D.O. 08/22/21 [facility] NAME: CHRISTINA SÁNCHEZ Pathology and Laboratory Medicine UNIT#: [id number] LOC: [facility] Profiling Machine Set Up Operator: Nimco Hurd M.D. 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 Rhiannon Moore Work Phone: [facility] 10-11-2023 16:11-0500 Body mass index (BMI) [Ratio] 37.5 kg/m2 Dr. Rhiannon Moore Work Phone: [facility] 10-11-2023 16:11-0500 Body weight 96.[address] Rhiannon Moore Work Phone: [facility] 10-11-2023 16:11-0500 Diastolic blood pressure 70 mm[Hg] Dr. Rhiannon Moore Work Phone: [facility] 10-11-2023 16:11-0500 Systolic blood pressure 122 mm[Hg] Dr. Rhiannon Moore Work Phone: [facility] 07-19-2023 14:23-0400 Body mass index (BMI) [Ratio] 37.2 kg/m2 Dr. Rhiannon Moore Work Phone: [facility] 07-19-2023 14:23-0400 Body temperature 97.9 [degF] Dr. Rhiannon Moore Work Phone: [facility] 07-19-2023 14:23-0400 Body weight 95.[address] Rhiannon Moore Work Phone: [facility] 07-19-2023 14:23-0400 Diastolic blood pressure 80 mm[Hg] Dr. Rhiannon Moore Work Phone: [facility] 07-19-2023 14:23-0400 Heart rate 84 /min Dr. Rhiannon Moore Work Phone: [facility] 07-19-2023 14:23-0400 Respiratory rate 16 /min Dr. Rhiannon Moore Work Phone: [facility] 07-19-2023 14:23-0400 SaO2% (BldA) [Mass fraction] 98 % Dr. Rhiannon Moore Work Phone: [facility] 07-19-2023 14:23-0400 Systolic blood pressure 120 mm[Hg] Dr. Rhiannon Moore Work Phone: [facility] 06-15-2022 11:35-0400 Body height 160.[address] Rhiannon Moore Work Phone: [facility] Work Phone: 06-15-2022 11:35-0400 Body mass index (BMI) [Ratio] 37.6 kg/m2 Dr. Rhiannon Moore Work Phone: [facility] Work Phone: 06-15-2022 11:35-0400 Body weight 96.[address] Rhiannon Moore Work Phone: [facility] Work Phone: 06-15-2022 11:35-0400 Diastolic blood pressure 88 mm[Hg] Dr. Rhiannon Moore Work Phone: [facility] Work Phone: 06-15-2022 11:35-0400 Heart rate 84 /min Dr. Rhiannon Moore Work Phone: [facility] Work Phone: 06-15-2022 11:35-0400 Respiratory rate 16 /min Dr. Rhiannon Moore Work Phone: [facility] Work Phone: 06-15-2022 11:35-0400 Systolic blood pressure 118 mm[Hg] Dr. Rhiannon Moore Work Phone: [facility] Work Phone: 05-22-2022 10:11-0400 Body temperature 98.3 [degF] Dr. Rhiannon Moore Work Phone: [facility] Work Phone: 05-22-2022 10:11-0400 Diastolic blood pressure 78 mm[Hg] Dr. Rhiannon Moore Work Phone: [facility] Work Phone: 05-22-2022 10:11-0400 Heart rate 71 /min Dr. Rhiannon Moore Work Phone: [facility] Work Phone: 05-22-2022 10:11-0400 Respiratory rate 14 /min Dr. Rhiannon Moore Work Phone: [facility] Work Phone: 05-22-2022 10:11-0400 Systolic blood pressure 122 mm[Hg] Dr. Rhiannon Moore Work Phone: [facility] Work Phone: Encounters Encounter Date Encounter Type Care Provider Facility Start: 07-28-2025 End: 07-28-2025 ambulatory Rhiannon [place] [place]: 06-16-2025 ambulatory Health Risk Assessment Facility:[facility] Start: 10-23-2023 End: 10-23-[address] Rhiannon Moore Work Phone: [facility] Work Phone: Start: 10-23-2023 End: 10-23-[address] Rhiannon Moore Work Phone: [facility]-Radiology, [facility] Work Phone: Start: 10-11-2023 End: 10-11-[address] Rhiannon Moore Work Phone: [facility] Work Phone: Start: 08-22-2023 End: 08-22-[address] Rhiannon Moore Work Phone: [facility]-Outpatient Breast Imaging Work Phone: Start: 07-19-[address] Rhiannon Moore Work Phone: [facility] Start: 07-19-2023 End: 07-19-[address] Rhiannon Moore Work Phone: [facility] Work Phone: Start: 07-06-2022 Non-patient / Non-visit Dr. Rhiannon Moore Work Phone: [facility] Start: 07-06-2022 End: 07-06-[address] Rhiannon Moore Work Phone: [facility] Work Phone: Start: 07-06-2022 End: 07-06-[address] Rhiannon Moore Work Phone: [facility]-Cardiovascular Services Start: 06-15-2022 End: 06-15-[address] Rhiannon Moore Work Phone: [facility] Start: 06-01-2022 End: 06-01-[address] Rhiannon Moore Work Phone: [facility]-Pulmonary Services/Neurology Start: 06-01-2022 Non-patient / Non-visit Dr. Rhiannon Moore Work Phone: [facility] Start: 05-22-[address] Rhiannon Moore Work Phone: [facility] Start: 05-22-2022 End: 05-22-[address] Rhiannon Moore Work Phone: [facility] Procedures Date Procedure Procedure Detail Performing Clinician Start: 10-23-2023 X-ray of lumbosacral spine Dr. Rhiannon Moore Work Phone: Start: 08-22-2023 Screening mammography Jc Moore Work Phone: Plan of Treatment Date Care Activity Detail Author Start: 07-19-2023 Patient referral [facility] Work Phone: Start: 05-22-2022 Patient referral [facility] Work Phone: CBC W Auto Different ial panel - Blood [facility] Work Phone: Patient referral [facility] Work Phone: Immunizations Immunization Date Immunization Notes Care Provider [facility] 07-08-2023 influenza, injectabl e, quadrivalent, preservative free Dr. Rhiannon Moore Work Phone: [facility] 07-04-2022 influenza, injectabl e, quadrivalent, preservative free Dr. Rhiannon Moore Work Phone: [facility] 07-04-2022 influenza, seasonal, injectable Dr. Rhiannon Moore Work Phone: [facility] Work Phone: 07-08-2021 influenza, injectabl e, quadrivalent, preservative free Dr. Rhiannon Moore Work Phone: [facility] 07-08-2021 influenza, seasonal, injectable Dr. Rhiannon Moore Work Phone: [facility] Work Phone: 07-08-2021 Seasonal, quadrivale nt, recombinant, injectable influenza vaccine, preservative free Dr. Rhiannon oMore Work Phone: [facility] 11-03-2020 Covid (Modern) Dr. Rhiannon velasco Work Phone: [facility] 10-06-2020 Covid (Modern) Dr. Rhiannon velasco Work Phone: [facility] 09-22-2020 influenza, injectabl e, quadrivalent, preservative free Dr. Rhiannon Moore Work Phone: [facility] 09-22-2020 influenza, seasonal, injectable Dr. Rhiannon Moore Work Phone: [facility] Work Phone: 07-01-2016 influenza, injectabl e, quadrivalent, preservative free Dr. Rhiannon Moore Work Phone: [facility] 07-01-2016 influenza, seasonal, injectable Dr. Rhiannon Moore Work Phone: [facility] Work Phone: 07-01-2016 Seasonal, quadrivale nt, recombinant, injectable influenza vaccine, preservative free Dr. Rhiannon Moore Work Phone: [facility] 04-11-2016 tetanus toxoid, redu attila diphtheria toxoid, and acellular pertussis vaccine, adsorbed Dr. Rhiannon Moore Work Phone: [facility] Payers Date Payer Category Payer Self-pay [id number] 2024 Unknown [id number] Unknown [facility] [id number] [facility] [id number] Unknown [id number] Unknown [id number] Unknown [id number] Social History Date Type Detail Facility Start: 06-15-2022 End: 10-11-2023 Tobacco smoking status MIIS Unknown if ever smoked [facility] Start: 1985 Sex Assigned At Female W [facility] Goals Date Patient Goal Desired Activity /State Evaluation note Note Date & Type Note Facility Evaluation note Diagnosis Onset Date Intermittent low back pain a cute Palpitations acute Screening for cardiovascular condition noneactive Establishing care with new jc lopez, encounter for noneactive Screening for cervical cancer noneactive Screening for skin cancer no neactive Dyspnea acute Palpitations acute Wenckebach second degree AV block acute [facility] Work Phone: Evaluation note Note Date & Type Note Facility Evaluation note Diagnosis Onset Date Intermittent low back pain a cute Palpitations acute Screening for skin cancer no neactive Annual physical exam noneact sury Impacted cerumen of both ears noneactive Screening for breast cancer noneactive Back pain acute Segmental and somatic dysfun ction of cervical region acute Segmental and somatic dysfun ction of lumbar region acute Segmental and somatic dysfun ction of pelvic region acute Segmental and somatic dysfun ction of thoracic region acute [facility] Work Phone: Summary Purpose Family History No Family History Records Found Relationship Condition Age at Onset Recorded Date/T celso Not Specified Hypertension Unknown grandmother Anxiety Unknown Depression Unknown Alzheimer's disease Unknown Congestive heart failure Unknown Mitral valve prolapse Unknown father Diabetes mellitus Unknown Cardiac disease Unknown High blood cholesterol Unknown aunt Diabetes mellitus Unknown sister Diabetes mellitus Unknown mother Cardiac disease Unknown grandfather Cerebrovascular accident (CVA) Unknown Kidney disorder Unknown Myocardial infarction Unknown Advance Directives No Advanced Directives Records FoundNo Advanced Directives Records Found Chief Complaint and Reason for Visit 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 Moore DYSPNEA Reason for Visit Intermittent low cyndi k pain Palpitations Screening for cardiovascular condition Establishing care with new doctor, encounter for Screening for cervical cancer Screening for skin cancer Dyspnea Palpitations Reagan second degree AV block Chief Complaint YEARLY PHYSICAL SCREENING EST CARE E ORDERS Reason for Visit Intermittent low cyndi k pain Palpitations Screening for skin cancer Annual physical exam Impacted cerumen of both ears Screening for breast cancer Back pain Segmental and somatic dysfunction of cervical region Segmental and somatic dysfunction of lumbar region Segmental and somatic dysfunction of pelvic region Segmental and somatic dysfunction of thoracic region Additional Source Comments INFORMATION SOURCE (unrecogn ized section and content) DATE CREATED AUTHOR 09/02/2021 [facility] DATE CREATED AUTHOR AUTHOR'S ORGANIZ ATION 07/29/2025 [facility] Goals (unrecognized section and content) Goals may be documented in a n alternate section Care Teams (unrecognized sec tion and content) Team Status: Active Member Role Status Dates Dr. Ricardo Montana MD Family Provider Active Dr. Rhiannon Moore MD Primary Care Provider Active Team Status: Inactive Member Role Status Dates Dr. Rhiannon Moore MD Primary Care Pro vider, Attending Provider, Referring Provider Active Team Status: Inactive Member Role Status Dates Dr. Rhiannon Moore MD Primary Care Provider, Referri ng Provider Active Dr. Camila Gutierrez DC Attending Provider Active Team Status: Active Member Role Status Dates Dr. Rhiannon Moore MD Primary Care Provider Active Health Risk Assessment Attending Provider, Referring Jasmeet stockton Active Team Status: Inactive Member Role Status Dates Dr. Rhiannon Moore MD Primary Care Provider Active Dr. Camila Gutierrez DC Attending Provider, Referring Pro vider Active FOR RECORDS PERTAINING TO PATIENTS WHO ARE [...] BE BASED ON THE PRIMARY CLINICAL RECORDS. [employer] provides no warranty or guarantee of the accuracy or completeness of information in this document.
[2025-08-26 09:56] LABS: Vitamin D,25 Hydroxy 8.8 ng/mL (30-100)
== END | disposition home or self-care (01) ==
LOC: LAB 08:08
PROVIDERS: PCP Internal Medicine; Referring Provider Internal Medicine; Visit Provider Internal Medicine
DX: R53.83 Other fatigue (principal)
CPT/HCPCS: 36415; 82306